=== PATIENT | female | born 2000 | race Caucasian/White ===

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

== ENCOUNTER → 2022-03-21 | Outpatient (CLI) | payer OTHER ==
[2022-03-21 15:13] LABS: HEMATOCRIT 38.4 % (36.0-47.0); HEMOGLOBIN 11.7 g/dl (12.0-15.5); MEAN CORPUSCULAR HEMOGLOBIN 25.1 pg (27.0-33.0); MEAN CORPUSCULAR HGB CONC 30.5 g/dl (32.0-36.5); MEAN CORPUSCULAR VOLUME 82.4 fl (80.0-96.0); PLATELET COUNT, AUTOMATED 342 10^3/uL (150-450); RED BLOOD COUNT 4.66 10^6/uL (4.00-5.40); WHITE BLOOD COUNT 8.4 10^3/uL (4.0-10.0)
[2022-03-21 15:18] LABS: HCG, SERUM QUALITATIVE NEGATIVE (NEGATIVE)
[2022-03-21 15:38] LABS: ALBUMIN 3.9 GM/DL (3.2-5.2); ALT/SGPT 16 U/L (12-78); BILIRUBIN,TOTAL 0.7 MG/DL (0.2-1.0); BLOOD UREA NITROGEN 7 MG/DL (7-18); CALCIUM LEVEL 9.6 MG/DL (8.5-10.1); CARBON DIOXIDE LEVEL 25 MEQ/L (21-32); CHLORIDE LEVEL 109 MEQ/L (98-107); CHOLESTEROL LEVEL 151 MG/DL (<200); CHOLESTEROL RISK RATIO 3.282 (<5); CREATININE FOR GFR 0.64 MG/DL (0.55-1.30); GLUCOSE, FASTING 88 MG/DL (70-100); HDL CHOLESTEROL 46 MG/DL (>40); LDL CHOLESTEROL 88 MG/DL (<100); NON-HDL-C 105 MG/DL; POTASSIUM SERUM 4.1 MEQ/L (3.5-5.1); SODIUM LEVEL 139 MEQ/L (136-145); TOTAL PROTEIN 7.6 GM/DL (6.4-8.2); TRIGLYCERIDES LEVEL 83 MG/DL (<150)
[2022-03-21 16:01] LABS: TOTAL 25(OH) VITAMIN D 9.7 NG/ML (30.0-100.0)
[2022-03-21 16:04] LABS: HEMOGLOBIN A1c 5.2 %
== END ==
LOC: M LAB 13:59
PROVIDERS: ATTEND Nurse Practitioner Psychiatric/Mental Health
DX: F43.20 Adjustment disorder, unspecified (principal)

== ENCOUNTER 2022-10-11 17:50 | Inpatient (IN) | payer MEDICAID, OTHER ==
[~2022-10-11] VITALS: Ht 167.6 cm; Wt 101.9 kg
[2022-10-11] MEDS ORDERED: OLAN2.5T25 (18:07)
[2022-10-11] MEDS ORDERED: ZOLO100T PO (18:07)
[2022-10-11 19:10] LABS: HEMATOCRIT 41.8 % (36.0-47.0); HEMOGLOBIN 13.1 g/dl (12.0-15.5); MEAN CORPUSCULAR HEMOGLOBIN 25.7 pg (27.0-33.0); MEAN CORPUSCULAR HGB CONC 31.3 g/dl (32.0-36.5); PLATELET COUNT, AUTOMATED 404 10^3/uL (150-450); WHITE BLOOD COUNT 9.8 10^3/uL (4.0-10.0)
[2022-10-11 19:27] LABS: CHLORIDE LEVEL 88 MMOL/L (98-107); SODIUM LEVEL 119 MMOL/L (136-145)
[2022-10-11 19:28] LABS: ALBUMIN 4.4 G/DL (3.2-5.2); CARBON DIOXIDE LEVEL 20 MMOL/L (20-31)
[2022-10-11 19:33] LABS: BLOOD UREA NITROGEN 7 MG/DL (9-23); CALCIUM LEVEL 9.8 MG/DL (8.5-10.1); GLUCOSE, FASTING 109 MG/DL (60-100)
[2022-10-11 19:34] LABS: ALKALINE PHOSPHATASE 87 U/L (46-116); ETHYL ALCOHOL (ETHANOL) 0.003 % (0.000-0.010)
[2022-10-11 19:35] LABS: ACETAMINOPHEN LEVEL < 2.0 UG/ML (10.0-20.0); ALT/SGPT 20 U/L (7.0-40); AST/SGOT 20 U/L (<34); BILIRUBIN,DIRECT 0.3 MG/DL (<0.4); BILIRUBIN,TOTAL 0.8 MG/DL (0.3-1.2); SALICYLATE LEVEL < 3.0 MG/DL (<30); TOTAL PROTEIN 8.1 G/DL (5.7-8.2)
[2022-10-11 19:36] LABS: CREATININE FOR GFR 0.69 MG/DL (0.55-1.30)
[2022-10-11 19:37] LABS: THYROID STIMULATING HORMONE 1.255 uIU/ML (0.48-4.17)
[2022-10-11 19:40] LABS: POTASSIUM SERUM 3.3 MMOL/L (3.5-5.1)
[2022-10-11] MEDS ORDERED: LITH150C PO (20:26)
[2022-10-11] MEDS ORDERED: HOME MED LIST COMPLETE! XX SCH (20:30)
[2022-10-11 20:59] LABS: AMPHETAMINES LEVEL URINE NEGATIVE (NEGATIVE); BARBITURATES URINE NEGATIVE (NEGATIVE); BENZODIAZEPINES URINE NEGATIVE (NEGATIVE); METHADONE URINE NEGATIVE (NEGATIVE); OPIATES URINE NEGATIVE (NEGATIVE); PHENCYCLIDINE URINE NEGATIVE (NEGATIVE)
[2022-10-11 21:16] LABS: CANNABINOIDS URINE POSITIVE (NEGATIVE)
[2022-10-11 22:07] LABS: OSMOLALITY URINE 864 MOSM/KG (50-1400)
[2022-10-11 22:07] LABS: OSMOLALITY SERUM 285 MOSM/KG (275-295)
[2022-10-11 22:12] LABS: SODIUM,RANDOM URINE 144 MMOL/L
[2022-10-11 22:17] LABS: COCAINE METABOLITE URINE NEGATIVE (NEGATIVE)
[2022-10-11] MEDS ORDERED: NS 1,000 ML IV ONE (23:10)
[2022-10-11 23:12] LABS: LITHIUM LEVEL < 0.20 MEQ/L (0.60-1.20)
[2022-10-11 23:18] LABS: HCG, SERUM QUALITATIVE NEGATIVE (NEGATIVE)
[2022-10-12 00:02] LABS: RSV AMPLIFICATION NEGATIVE (NEGATIVE)
[2022-10-12] MEDS ORDERED: LORazepam 2 MG/ML VIAL IV STA (00:21)
[2022-10-12] MEDS ORDERED: POTASSIUM CHLORIDE 10MEQ SR TABLET PO ONE (02:00)
[2022-10-12 02:09] LABS: CHLORIDE LEVEL 107 MMOL/L (98-107); POTASSIUM SERUM 3.7 MMOL/L (3.5-5.1); SODIUM LEVEL 139 MMOL/L (136-145)
[2022-10-12 02:10] LABS: CARBON DIOXIDE LEVEL 24 MMOL/L (20-31)
[2022-10-12 02:15] LABS: BLOOD UREA NITROGEN 7 MG/DL (9-23)
[2022-10-12 02:16] LABS: CALCIUM LEVEL 8.4 MG/DL (8.5-10.1); GLUCOSE, FASTING 92 MG/DL (60-100)
[2022-10-12 02:18] LABS: CREATININE FOR GFR 0.63 MG/DL (0.55-1.30)
[2022-10-12] MEDS ORDERED: OLANZapine ORAL DISINTEGRATING TAB 5MG PO PRN (05:50)
[2022-10-12] MEDS ORDERED: MOM 30ML SUSPENSION UDC PO PRN (05:50)
[2022-10-12] MEDS ORDERED: ACETAMINOPHEN TAB 650MG DOSE (2X325MG) PO PRN (05:50)
[2022-10-12] MEDS ORDERED: MAALOX 30 ML SUSP *UDC PO PRN (05:50)
[2022-10-12 08:57] VITALS: BP 141/81
[2022-10-12] MEDS ORDERED: SERTRALINE HCL 50 MG TAB PO SCH (09:00)
[2022-10-12] MEDS ORDERED: OLANZapine ORAL DISINTEGRATING TAB 5MG PO ONE (10:45)
[2022-10-12] MEDS ORDERED: OLANZapine 5 MG TAB PO SCH (21:00)
[2022-10-12] MEDS ORDERED: diphenhydrAMINE 50MG CAP PO ONE (23:45)
[2022-10-12] MEDS ORDERED: LORazepam 1 MG TAB PO ONE (23:45)
[2022-10-13 06:39] VITALS: BP 133/69
[2022-10-13 07:54] LABS: CHOLESTEROL RISK RATIO 3.37 (<5); HDL CHOLESTEROL 33.8 MG/DL (>40); LDL CHOLESTEROL 70.4 MG/DL (<100)
[2022-10-13] MEDS: SERTRALINE HCL 50 MG TAB PO SCH (09:00)
[2022-10-13] MEDS: OLANZapine 2.5MG TABLET PO SCH ×2 (09:00→21:00)
[2022-10-13] MEDS ORDERED: LORazepam 0.5 MG TAB PO PRN (12:55)
[2022-10-13 18:15] VITALS: BP 148/70
[2022-10-13] MEDS: LITHIUM CARBONATE 150 MG CAP PO SCH (21:49)
[2022-10-14 06:30] VITALS: BP 118/59
[2022-10-14] MEDS: SERTRALINE HCL 50 MG TAB PO SCH (09:51)
[2022-10-14] MEDS: OLANZapine 2.5MG TABLET PO SCH ×2 (09:51→20:16)
[2022-10-14 18:09] VITALS: BP 145/74
[2022-10-14] MEDS: traZODone 50 MG TAB PO PRN (20:16)
[2022-10-14] MEDS: LITHIUM CARBONATE 150 MG CAP PO SCH (20:16)
[2022-10-15 06:00] VITALS: BP 146/65
[2022-10-15] MEDS: SERTRALINE HCL 50 MG TAB PO SCH (09:40)
[2022-10-15] MEDS: OLANZapine 2.5MG TABLET PO SCH ×2 (09:40→20:53)
[2022-10-15 18:16] VITALS: BP 145/66
[2022-10-15] MEDS: LITHIUM CARBONATE 150 MG CAP PO SCH (20:53)
[2022-10-15] MEDS: traZODone 50 MG TAB PO PRN (20:53)
[2022-10-16 06:55] VITALS: BP 145/88
[2022-10-16] MEDS: OLANZapine 2.5MG TABLET PO SCH ×2 (10:14→20:02)
[2022-10-16] MEDS: SERTRALINE HCL 50 MG TAB PO SCH (10:14)
[2022-10-16 18:00] VITALS: BP 140/70
[2022-10-16] MEDS: traZODone 50 MG TAB PO PRN (20:02)
[2022-10-16] MEDS: LITHIUM CARBONATE 150 MG CAP PO SCH (20:02)
[2022-10-17 06:50] VITALS: BP 128/60
[2022-10-17] MEDS: OLANZapine 2.5MG TABLET PO SCH ×2 (07:52→21:04)
[2022-10-17] MEDS: SERTRALINE HCL 50 MG TAB PO SCH (07:53)
[2022-10-17] MEDS ORDERED: SERTRALINE HCL 50 MG TAB PO ONE (09:45)
[2022-10-17 16:10] VITALS: BP 134/82
[2022-10-17] MEDS ORDERED: LITHIUM CARBONATE 150 MG CAP PO SCH (21:00)
[2022-10-17] MEDS: traZODone 50 MG TAB PO PRN (21:05)
[2022-10-18 06:33] VITALS: BP 125/71
[2022-10-18] MEDS ORDERED: SERTRALINE 100 MG TAB PO SCH ×2 (09:00→09:11)
[2022-10-18] MEDS ORDERED: SERTRALINE HCL 50 MG TAB PO SCH (09:00)
[2022-10-18] MEDS: OLANZapine 2.5MG TABLET PO SCH (09:15)
[2022-10-18] MEDS ORDERED: LITH150C PO (10:11)
[2022-10-18] MEDS ORDERED: TRAZ-252 PO (10:11)
[2022-10-18] MEDS ORDERED: OLAN2.5T25 PO (10:11)
[2022-10-18] MEDS ORDERED: ZOLO100T PO (10:11)
== END 2022-10-18 12:20 | disposition home or self-care (01) | DRG 776 ==
LOC: M ED 17:50 → M ED INP 10-12 05:47 → M PSY 10-12 08:49
PROVIDERS: ADMIT Student in an Organized Health Care Education/Training Program; ATTEND Student in an Organized Health Care Education/Training Program
DX: F15.951 Other stimulant use, unspecified with stimulant-induced psychotic disorder with hallucinations (principal); F12.10 Cannabis abuse, uncomplicated; F32.A Depression, unspecified; F43.9 Reaction to severe stress, unspecified; Z63.4 Disappearance and death of family member; Z81.8 Family history of other mental and behavioral disorders; Z20.822 Contact with and (suspected) exposure to COVID-19; Z79.899 Other long term (current) drug therapy; E66.9 Obesity, unspecified; G40.909 Epilepsy, unspecified, not intractable, without status epilepticus

== ENCOUNTER 2022-11-02 03:35 | Inpatient (IN) | payer MEDICAID, OTHER ==
[~2022-11-02] VITALS: Ht 167.6 cm; Wt 104.5 kg
[~2022-11-02 03:35] MED LIST changes: +LITH150C PO; +OLAN2.5T25; +OLAN2.5T25 PO; +TRAZ-252 PO; +ZOLO100T PO
[2022-11-02 04:18] LABS: HEMATOCRIT 37.3 % (36.0-47.0); HEMOGLOBIN 11.8 g/dl (12.0-15.5); MEAN CORPUSCULAR HEMOGLOBIN 24.7 pg (27.0-33.0); MEAN CORPUSCULAR HGB CONC 31.6 g/dl (32.0-36.5); PLATELET COUNT, AUTOMATED 485 10^3/uL (150-450); RED BLOOD COUNT 4.78 10^6/uL (4.00-5.40); WHITE BLOOD COUNT 17.4 10^3/uL (4.0-10.0)
[2022-11-02] MEDS ORDERED: OLANZapine ORAL DISINTEGRATING TAB 5MG PO ONE (04:25)
[2022-11-02 04:43] LABS: ACETAMINOPHEN LEVEL < 2.0 UG/ML (10.0-20.0); BILIRUBIN,DIRECT 0.3 MG/DL (<0.4); ETHYL ALCOHOL (ETHANOL) 0.003 % (0.000-0.010)
[2022-11-02 04:44] LABS: ALBUMIN 4.1 G/DL (3.2-5.2); ALKALINE PHOSPHATASE 98 U/L (46-116); ALT/SGPT 20 U/L (7.0-40); AST/SGOT 24 U/L (<34); BILIRUBIN,TOTAL 0.9 MG/DL (0.3-1.2); BLOOD UREA NITROGEN 13 MG/DL (9-23); CALCIUM LEVEL 9.8 MG/DL (8.5-10.1); CARBON DIOXIDE LEVEL 20 MMOL/L (20-31); CHLORIDE LEVEL 104 MMOL/L (98-107); CREATININE FOR GFR 0.69 MG/DL (0.55-1.30); GLUCOSE, FASTING 99 MG/DL (60-100); POTASSIUM SERUM 3.8 MMOL/L (3.5-5.1); SALICYLATE LEVEL < 3.0 MG/DL (<30); SODIUM LEVEL 137 MMOL/L (136-145); TOTAL PROTEIN 8.2 G/DL (5.7-8.2)
[2022-11-02 04:52] LABS: HCG, SERUM QUALITATIVE NEGATIVE (NEGATIVE)
[2022-11-02 04:58] LABS: RSV AMPLIFICATION NEGATIVE (NEGATIVE)
[2022-11-02] MEDS ORDERED: ZOLO100T PO (06:55)
[2022-11-02] MEDS ORDERED: LITH150C PO (06:55)
[2022-11-02] MEDS ORDERED: TRAZ-186 PO (06:55)
[2022-11-02] MEDS ORDERED: OLAN15TA13 PO (06:55)
[2022-11-02] MEDS ORDERED: HOME MED LIST COMPLETE! XX SCH (07:00)
[2022-11-02 07:36] LABS: THYROID STIMULATING HORMONE 4.159 uIU/ML (0.48-4.17)
[2022-11-02 07:43] LABS: LITHIUM LEVEL < 0.10 MEQ/L (0.60-1.20)
[2022-11-02] MEDS ORDERED: traZODone 50 MG TAB PO PRN (08:55)
[2022-11-02] MEDS ORDERED: OLANZapine 2.5MG TABLET PO SCH (09:00)
[2022-11-02] MEDS: NICOTINE 21MG/24HR 1 EA TRANSDERMAL TD SCH (09:00)
[2022-11-02] MEDS ORDERED: SERTRALINE 100 MG TAB PO SCH (09:00)
[2022-11-02 11:29] LABS: PHENCYCLIDINE URINE NEGATIVE (NEGATIVE)
[2022-11-02 11:30] LABS: BARBITURATES URINE NEGATIVE (NEGATIVE); BENZODIAZEPINES URINE NEGATIVE (NEGATIVE); COCAINE METABOLITE URINE NEGATIVE (NEGATIVE); METHADONE URINE NEGATIVE (NEGATIVE); OPIATES URINE NEGATIVE (NEGATIVE)
[2022-11-02 11:37] LABS: AMPHETAMINES LEVEL URINE POSITIVE (NEGATIVE); CANNABINOIDS URINE POSITIVE (NEGATIVE)
[2022-11-02] MEDS ORDERED: IBUPROFEN 400MG TAB PO PRN (13:30)
[2022-11-02] MEDS ORDERED: diphenhydrAMINE 25MG CAP PO PRN (13:30)
[2022-11-02] MEDS ORDERED: MAALOX 30 ML SUSP *UDC PO PRN (13:30)
[2022-11-02] MEDS ORDERED: OLANZapine 5 MG TAB PO PRN (13:30)
[2022-11-02] MEDS ORDERED: MOM 30ML SUSPENSION UDC PO PRN (13:30)
[2022-11-02 17:07] VITALS: BP 129/56
[2022-11-02] MEDS ORDERED: LITHIUM CARBONATE 300 MG CAP PO SCH (21:00)
[2022-11-02] MEDS: traZODone 50 MG TAB PO PRN (21:29)
[2022-11-02] MEDS: OLANZapine 5 MG TAB PO SCH (21:29)
[2022-11-02] MEDS: LITHIUM CARBONATE 150 MG CAP PO SCH (21:29)
[2022-11-03 06:55] VITALS: BP 123/58
[2022-11-03] MEDS: NICOTINE 21MG/24HR 1 EA TRANSDERMAL TD SCH (09:00)
[2022-11-03] MEDS: SERTRALINE 100 MG TAB PO SCH (09:17)
[2022-11-03] MEDS: OLANZapine 5 MG TAB PO SCH (09:17)
[2022-11-03 12:29] LABS: HEMATOCRIT 35.4 % (36.0-47.0); HEMOGLOBIN 10.7 g/dl (12.0-15.5); MEAN CORPUSCULAR HEMOGLOBIN 24.7 pg (27.0-33.0); MEAN CORPUSCULAR HGB CONC 30.2 g/dl (32.0-36.5); MEAN CORPUSCULAR VOLUME 81.8 fl (80.0-96.0); PLATELET COUNT, AUTOMATED 376 10^3/uL (150-450); RED BLOOD COUNT 4.33 10^6/uL (4.00-5.40); WHITE BLOOD COUNT 11.7 10^3/uL (4.0-10.0)
[2022-11-03 18:38] VITALS: BP 135/61
[2022-11-03] MEDS: LITHIUM CARBONATE 150 MG CAP PO SCH (21:06)
[2022-11-03] MEDS: PALIPERIDONE 3MG ER TAB (INVEGA) PO SCH (21:06)
[2022-11-04 06:05] VITALS: BP 116/65
[2022-11-04] MEDS: PALIPERIDONE 3MG ER TAB (INVEGA) PO SCH ×2 (08:22→20:55)
[2022-11-04] MEDS: SERTRALINE 100 MG TAB PO SCH (08:22)
[2022-11-04] MEDS: NICOTINE 21MG/24HR 1 EA TRANSDERMAL TD SCH (08:23)
[2022-11-04] MEDS: MULTIVITAMINS/MINERALS THERAP 1 TAB PO SCH (09:34)
[2022-11-04 18:00] VITALS: BP 131/62
[2022-11-04] MEDS: LITHIUM CARBONATE 150 MG CAP PO SCH (20:55)
[2022-11-05 06:24] VITALS: BP 131/73
[2022-11-05] MEDS: NICOTINE 21MG/24HR 1 EA TRANSDERMAL TD SCH (09:00)
[2022-11-05] MEDS: MULTIVITAMINS/MINERALS THERAP 1 TAB PO SCH (10:33)
[2022-11-05] MEDS: SERTRALINE 100 MG TAB PO SCH (10:33)
[2022-11-05] MEDS: PALIPERIDONE 3MG ER TAB (INVEGA) PO SCH ×2 (10:33→20:59)
[2022-11-05] MEDS ORDERED: PALIPERIDONE PAL 234MG/1.5ML INJ (INVEGA)(FREE PSY INPT ONLY) IM ONE (12:00)
[2022-11-05 16:52] VITALS: BP 126/75
[2022-11-05] MEDS: LITHIUM CARBONATE 150 MG CAP PO SCH (20:59)
[2022-11-06 06:18] VITALS: BP 136/75
[2022-11-06] MEDS: NICOTINE 21MG/24HR 1 EA TRANSDERMAL TD SCH (09:00)
[2022-11-06] MEDS: SERTRALINE 100 MG TAB PO SCH (09:48)
[2022-11-06] MEDS: PALIPERIDONE 3MG ER TAB (INVEGA) PO SCH ×2 (09:48→21:21)
[2022-11-06] MEDS: MULTIVITAMINS/MINERALS THERAP 1 TAB PO SCH (09:49)
[2022-11-06 14:49] VITALS: BP 130/66
[2022-11-06] MEDS: traZODone 50 MG TAB PO PRN (21:21)
[2022-11-06] MEDS: LITHIUM CARBONATE 150 MG CAP PO SCH (21:21)
[2022-11-07 07:05] VITALS: BP 120/63
[2022-11-07] MEDS: MULTIVITAMINS/MINERALS THERAP 1 TAB PO SCH (08:00)
[2022-11-07] MEDS: PALIPERIDONE 3MG ER TAB (INVEGA) PO SCH ×2 (08:00→21:33)
[2022-11-07] MEDS: NICOTINE 21MG/24HR 1 EA TRANSDERMAL TD SCH (08:01)
[2022-11-07] MEDS: SERTRALINE 100 MG TAB PO SCH (08:01)
[2022-11-07 19:00] VITALS: BP 146/70
[2022-11-07] MEDS: traZODone 50 MG TAB PO PRN (21:33)
[2022-11-07] MEDS: LITHIUM CARBONATE 150 MG CAP PO SCH (21:33)
[2022-11-08] MEDS ORDERED: PALIPERIDONE PAL 156MG/1ML INJ(INVEGA)(FREE PSY INPT ONLY) IM ONE (06:00)
[2022-11-08 07:08] VITALS: BP 117/68
[2022-11-08] MEDS: NICOTINE 21MG/24HR 1 EA TRANSDERMAL TD SCH (09:00)
[2022-11-08] MEDS ORDERED: LITH150C PO (09:16)
[2022-11-08] MEDS ORDERED: NICO21PAT TD (09:16)
[2022-11-08] MEDS ORDERED: PALI1TAB2 PO (09:16)
[2022-11-08] MEDS ORDERED: ZOLO100T PO (09:16)
[2022-11-08] MEDS ORDERED: INVE156I IM (09:16)
[2022-11-08] MEDS ORDERED: TRAZ-186 PO (09:16)
[2022-11-08] MEDS: PALIPERIDONE 3MG ER TAB (INVEGA) PO SCH (09:29)
[2022-11-08] MEDS: MULTIVITAMINS/MINERALS THERAP 1 TAB PO SCH (09:29)
[2022-11-08] MEDS: SERTRALINE 100 MG TAB PO SCH (09:29)
== END 2022-11-08 11:30 | disposition home or self-care (01) | DRG 750 ==
LOC: M ED 03:35 → M ED INP 13:30 → M PSY 16:45
PROVIDERS: ADMIT Student in an Organized Health Care Education/Training Program; ATTEND Student in an Organized Health Care Education/Training Program
DX: F20.0 Paranoid schizophrenia (principal); D72.829 Elevated white blood cell count, unspecified; G43.909 Migraine, unspecified, not intractable, without status migrainosus; Z79.899 Other long term (current) drug therapy; F12.90 Cannabis use, unspecified, uncomplicated; Z87.891 Personal history of nicotine dependence

== ENCOUNTER 2022-11-24 20:26 | Emergency (ER) | payer MEDICAID ==
[~2022-11-24] VITALS: Ht 167.6 cm; Wt 101.6 kg
[~2022-11-24 20:26] MED LIST changes: +INVE156I IM; +NICO21PAT TD; +OLAN15TA13 PO; +PALI1TAB2 PO; +TRAZ-186 PO
[2022-11-24 21:49] LABS: HEMOGLOBIN 11.4 g/dl (12.0-15.5); MEAN CORPUSCULAR HEMOGLOBIN 24.5 pg (27.0-33.0); MEAN CORPUSCULAR VOLUME 81.5 fl (80.0-96.0); PLATELET COUNT, AUTOMATED 426 10^3/uL (150-450); RED BLOOD COUNT 4.66 10^6/uL (4.00-5.40); WHITE BLOOD COUNT 12.5 10^3/uL (4.0-10.0)
[2022-11-24] MEDS ORDERED: LITHIUM CARBONATE 300 MG **CR** TAB PO ONE (22:00)
[2022-11-24] MEDS ORDERED: traZODone 50 MG TAB PO ONE (22:00)
[2022-11-24] MEDS ORDERED: OLANZapine 10 MG TAB PO ONE (22:00)
[2022-11-24 22:12] LABS: ETHYL ALCOHOL (ETHANOL) 0.003 % (0.000-0.010)
[2022-11-24 22:13] LABS: ACETAMINOPHEN LEVEL < 2.0 UG/ML (10.0-20.0); BILIRUBIN,DIRECT 0.2 MG/DL (<0.4); SALICYLATE LEVEL < 3.0 MG/DL (<30)
[2022-11-24 22:15] LABS: THYROID STIMULATING HORMONE 1.796 uIU/ML (0.48-4.17)
[2022-11-24 22:21] LABS: RSV AMPLIFICATION NEGATIVE (NEGATIVE)
[2022-11-24 22:36] LABS: ALKALINE PHOSPHATASE 95 U/L (46-116); ALT/SGPT 18 U/L (7.0-40); AST/SGOT 38 U/L (<34); BILIRUBIN,TOTAL 0.7 MG/DL (0.3-1.2); BLOOD UREA NITROGEN 11 MG/DL (9-23); CALCIUM LEVEL 9.5 MG/DL (8.5-10.1); CARBON DIOXIDE LEVEL 22 MMOL/L (20-31); CHLORIDE LEVEL 104 MMOL/L (98-107); CREATININE FOR GFR 0.68 MG/DL (0.55-1.30); GLUCOSE, FASTING 91 MG/DL (60-100); LITHIUM LEVEL < 0.10 MMOL/L (0.60-1.20); POTASSIUM SERUM 4.8 MMOL/L (3.5-5.1); SODIUM LEVEL 137 MMOL/L (136-145); TOTAL PROTEIN 7.8 G/DL (5.7-8.2)
[2022-11-24 22:52] LABS: HCG, SERUM QUALITATIVE NEGATIVE (NEGATIVE)
[2022-11-24] MEDS ORDERED: ZOLO100T PO (23:23)
[2022-11-24] MEDS ORDERED: OLAN20TA14 PO (23:23)
[2022-11-24] MEDS ORDERED: TRAZ-252 PO (23:23)
[2022-11-24] MEDS ORDERED: LITH1TAB PO (23:23)
[2022-11-24] MEDS ORDERED: FERR1TAB8 PO (23:23)
[2022-11-24] MEDS ORDERED: INVE156I IM (23:23)
[2022-11-24 23:32] LABS: AMPHETAMINES LEVEL URINE NEGATIVE (NEGATIVE); BARBITURATES URINE NEGATIVE (NEGATIVE); COCAINE METABOLITE URINE NEGATIVE (NEGATIVE); METHADONE URINE NEGATIVE (NEGATIVE); OPIATES URINE NEGATIVE (NEGATIVE); PHENCYCLIDINE URINE NEGATIVE (NEGATIVE)
[2022-11-24 23:33] LABS: BENZODIAZEPINES URINE POSITIVE (NEGATIVE); CANNABINOIDS URINE POSITIVE (NEGATIVE)
[2022-11-25] MEDS ORDERED: HOME MED LIST COMPLETE! XX SCH (00:55)
[2022-11-25] MEDS ORDERED: PALIPERIDONE 6MG ER TAB (INVEGA) PO ONE (08:20)
[2022-11-25 14:21] VITALS: BP 125/84
== END 2022-11-25 14:28 | disposition home or self-care (01) ==
LOC: M ED 21:51
DX: F19.951 Other psychoactive substance use, unspecified with psychoactive substance-induced psychotic disorder with hallucinations (principal); F20.9 Schizophrenia, unspecified; F12.10 Cannabis abuse, uncomplicated

== ENCOUNTER 2023-05-05 06:13 | Inpatient (IN) | payer MEDICAID, OTHER ==
[~2023-05-05] VITALS: Ht 170.2 cm; Wt 100.5 kg
[~2023-05-05 06:13] MED LIST changes: +FERR1TAB8 PO; +LITH1TAB PO; +OLAN20TA14 PO
[2023-05-05 07:55] LABS: HEMATOCRIT 38.1 % (36.0-47.0); HEMOGLOBIN 11.7 g/dl (12.0-15.5); MEAN CORPUSCULAR HEMOGLOBIN 24.1 pg (27.0-33.0); MEAN CORPUSCULAR HGB CONC 30.7 g/dl (32.0-36.5); MEAN CORPUSCULAR VOLUME 78.6 fl (80.0-96.0); PLATELET COUNT, AUTOMATED 316 10^3/uL (150-450); RED BLOOD COUNT 4.85 10^6/uL (4.00-5.40); WHITE BLOOD COUNT 9.7 10^3/uL (4.0-10.0)
[2023-05-05 08:23] LABS: ETHYL ALCOHOL (ETHANOL) < 0.003 % (0.000-0.010)
[2023-05-05 08:24] LABS: SALICYLATE LEVEL < 3.0 MG/DL (<30)
[2023-05-05 08:25] LABS: ACETAMINOPHEN LEVEL < 2.0 UG/ML (10.0-20.0); ALBUMIN 4.1 G/DL (3.2-5.2); ALKALINE PHOSPHATASE 80 U/L (46-116); ALT/SGPT 19 U/L (7.0-40); AST/SGOT 15 U/L (<34); BILIRUBIN,DIRECT 0.5 MG/DL (<0.4); BILIRUBIN,TOTAL 1.3 MG/DL (0.3-1.2); BLOOD UREA NITROGEN 15 MG/DL (9-23); CALCIUM LEVEL 8.9 MG/DL (8.5-10.1); CARBON DIOXIDE LEVEL 21 MMOL/L (20-31); CHLORIDE LEVEL 106 MMOL/L (98-107); CREATININE FOR GFR 0.87 MG/DL (0.55-1.30); GLUCOSE, FASTING 92 MG/DL (60-100); POTASSIUM SERUM 3.8 MMOL/L (3.5-5.1); SODIUM LEVEL 138 MMOL/L (136-145); TOTAL PROTEIN 7.4 G/DL (5.7-8.2)
[2023-05-05 08:27] LABS: THYROID STIMULATING HORMONE 1.242 uIU/ML (0.48-4.17)
[2023-05-05 08:59] LABS: BARBITURATES URINE NEGATIVE (NEGATIVE); BENZODIAZEPINES URINE NEGATIVE (NEGATIVE); COCAINE METABOLITE URINE NEGATIVE (NEGATIVE); METHADONE URINE NEGATIVE (NEGATIVE); OPIATES URINE NEGATIVE (NEGATIVE); PHENCYCLIDINE URINE NEGATIVE (NEGATIVE)
[2023-05-05 09:09] LABS: AMPHETAMINES LEVEL URINE POSITIVE (NEGATIVE); CANNABINOIDS URINE POSITIVE (NEGATIVE)
[2023-05-05] MEDS ORDERED: MED REC IN PROGRESS XX SCH (10:00)
[2023-05-05 10:11] LABS: GC DNA AMPLIFICATION NEGATIVE (NEGATIVE)
[2023-05-05] MEDS ORDERED: MED REC COMMENT (12:03)
[2023-05-05] MEDS ORDERED: OLAN2.5T25 PO (12:08)
[2023-05-05] MEDS ORDERED: HOME MED LIST COMPLETE! XX SCH (12:15)
[2023-05-05 15:12] LABS: HCG, SERUM QUALITATIVE NEGATIVE (NEGATIVE)
[2023-05-05] MEDS ORDERED: DOXYCYCLINE HYCLATE 100MG TABLET PO ONE (16:00)
[2023-05-05] MEDS ORDERED: IBUPROFEN 400MG TAB PO PRN (19:00)
[2023-05-05] MEDS ORDERED: MOM 30ML SUSPENSION UDC PO PRN (19:00)
[2023-05-05] MEDS ORDERED: OLANZapine ORAL DISINTEGRATING TAB 5MG PO PRN (19:00)
[2023-05-05] MEDS ORDERED: LORazepam 1 MG TAB PO PRN (19:00)
[2023-05-05] MEDS ORDERED: MAALOX 30 ML SUSP *UDC PO PRN (19:00)
[2023-05-05] MEDS ORDERED: diphenhydrAMINE 25MG CAP PO PRN (19:00)
[2023-05-05] MEDS ORDERED: ACETAMINOPHEN TAB 650MG DOSE (2X325MG) PO PRN (19:00)
[2023-05-05] MEDS: LITHIUM CARBONATE 300 MG **CR** TAB PO SCH (21:49)
[2023-05-05 21:56] VITALS: BP 134/75; TEMP 98.2; O2SAT 96
[2023-05-05] MEDS: DOXYCYCLINE HYCLATE 100MG TABLET PO SCH (22:14)
[2023-05-06 07:13] VITALS: BP 143/63; TEMP 97.8; O2SAT 99
[2023-05-06] MEDS ORDERED: PALIPERIDONE 6MG ER TAB (INVEGA) PO SCH (09:00)
[2023-05-06] MEDS: SERTRALINE HCL 50 MG TAB PO SCH (10:21)
[2023-05-06] MEDS: DOXYCYCLINE HYCLATE 100MG TABLET PO SCH ×2 (10:21→21:37)
[2023-05-06 11:27] LABS: PERCENT SATURATION 8.9 % (13.2-45.0)
[2023-05-06 11:28] LABS: FERRITIN 42.7 NG/ML (7.3-270.7); FOLATE 13.99 NG/ML (>5.4)
[2023-05-06 17:07] VITALS: BP 131/76; TEMP 98; O2SAT 97
[2023-05-06] MEDS: LITHIUM CARBONATE 300 MG **CR** TAB PO SCH (21:36)
[2023-05-07 07:03] VITALS: BP 140/63; TEMP 97.6; O2SAT 99
[2023-05-07] MEDS: DOXYCYCLINE HYCLATE 100MG TABLET PO SCH ×2 (08:01→21:56)
[2023-05-07] MEDS: SERTRALINE HCL 50 MG TAB PO SCH (08:01)
[2023-05-07] MEDS: FERROUS SULFATE 325MG TAB PO SCH (09:42)
[2023-05-07 17:05] VITALS: BP 120/64; TEMP 98.4; O2SAT 100
[2023-05-07] MEDS: LITHIUM CARBONATE 300 MG **CR** TAB PO SCH (21:56)
[2023-05-07] MEDS: traZODone 50 MG TAB PO PRN (21:56)
[2023-05-08 06:49] VITALS: BP 115/64; TEMP 99.1; O2SAT 97
[2023-05-08] MEDS: DOXYCYCLINE HYCLATE 100MG TABLET PO SCH ×2 (07:59→21:05)
[2023-05-08] MEDS: FERROUS SULFATE 325MG TAB PO SCH (07:59)
[2023-05-08] MEDS: SERTRALINE HCL 50 MG TAB PO SCH (07:59)
[2023-05-08 18:00] VITALS: BP 125/68; TEMP 98.5
[2023-05-08] MEDS: traZODone 50 MG TAB PO PRN (21:05)
[2023-05-08] MEDS: PALIPERIDONE 3MG ER TAB (INVEGA) PO SCH (21:05)
[2023-05-08] MEDS: LITHIUM CARBONATE 300 MG **CR** TAB PO SCH (21:06)
[2023-05-09 05:59] VITALS: BP 121/59; TEMP 98.1; O2SAT 100
[2023-05-09] MEDS: SERTRALINE HCL 50 MG TAB PO SCH (08:22)
[2023-05-09] MEDS: DOXYCYCLINE HYCLATE 100MG TABLET PO SCH ×2 (08:22→20:45)
[2023-05-09] MEDS: FERROUS SULFATE 325MG TAB PO SCH (08:23)
[2023-05-09] MEDS: NICOTINE 21MG/24HR 1 EA TRANSDERMAL TD PRN (08:24)
[2023-05-09 18:01] VITALS: BP 127/60; TEMP 97.6
[2023-05-09] MEDS: traZODone 50 MG TAB PO PRN (20:45)
[2023-05-09] MEDS: LITHIUM CARBONATE 300 MG **CR** TAB PO SCH (20:45)
[2023-05-09] MEDS: PALIPERIDONE 3MG ER TAB (INVEGA) PO SCH (20:45)
[2023-05-10 06:16] VITALS: BP 121/69; TEMP 96.8; O2SAT 99
[2023-05-10] MEDS: DOXYCYCLINE HYCLATE 100MG TABLET PO SCH ×2 (08:08→20:13)
[2023-05-10] MEDS: NICOTINE 21MG/24HR 1 EA TRANSDERMAL TD PRN (08:09)
[2023-05-10] MEDS: FERROUS SULFATE 325MG TAB PO SCH (08:09)
[2023-05-10] MEDS: SERTRALINE HCL 50 MG TAB PO SCH (08:10)
[2023-05-10 18:28] VITALS: BP 131/78; TEMP 98.1
[2023-05-10] MEDS: LITHIUM CARBONATE 300 MG **CR** TAB PO SCH (20:13)
[2023-05-10] MEDS: PALIPERIDONE 3MG ER TAB (INVEGA) PO SCH (20:13)
[2023-05-10] MEDS: traZODone 50 MG TAB PO PRN (20:14)
[2023-05-11 06:49] VITALS: BP 128/61; TEMP 97.1; O2SAT 100
[2023-05-11] MEDS: SERTRALINE HCL 50 MG TAB PO SCH (08:29)
[2023-05-11] MEDS: FERROUS SULFATE 325MG TAB PO SCH (08:29)
[2023-05-11] MEDS: DOXYCYCLINE HYCLATE 100MG TABLET PO SCH (08:29)
[2023-05-11] MEDS: NICOTINE 21MG/24HR 1 EA TRANSDERMAL TD PRN (08:30)
[2023-05-11] MEDS ORDERED: FERR1TAB8 PO (13:26)
[2023-05-11] MEDS ORDERED: LITH1TAB PO (13:26)
[2023-05-11] MEDS ORDERED: PALI1TAB2 PO (13:30)
[2023-05-11] MEDS ORDERED: TRAZ-252 PO (13:30)
[2023-05-11] MEDS ORDERED: SERT50TA29 PO (13:30)
[2023-05-11 18:56] VITALS: BP 131/89; TEMP 97.6
[2023-05-11] MEDS: LITHIUM CARBONATE 300 MG **CR** TAB PO SCH (20:16)
[2023-05-11] MEDS: PALIPERIDONE 3MG ER TAB (INVEGA) PO SCH (20:16)
[2023-05-11] MEDS: traZODone 50 MG TAB PO PRN (20:16)
[2023-05-11] MEDS ORDERED: DOXYCYCLINE HYCLATE 100MG TABLET PO SCH (21:00)
[2023-05-12 06:31] VITALS: BP 140/67; TEMP 97.2; O2SAT 100
[2023-05-12] MEDS: SERTRALINE HCL 50 MG TAB PO SCH (09:49)
[2023-05-12] MEDS: FERROUS SULFATE 325MG TAB PO SCH (09:49)
== END 2023-05-12 10:44 | disposition home or self-care (01) | DRG 776 ==
LOC: M ED 06:13 → M ED INP 18:57 → M PSY 21:19
PROVIDERS: ADMIT Psychiatry & Neurology Psychiatry; ATTEND Student in an Organized Health Care Education/Training Program
DX: F15.951 Other stimulant use, unspecified with stimulant-induced psychotic disorder with hallucinations (principal); F43.9 Reaction to severe stress, unspecified; R45.851 Suicidal ideations; F25.0 Schizoaffective disorder, bipolar type; F12.10 Cannabis abuse, uncomplicated; F32.A Depression, unspecified; D50.9 Iron deficiency anemia, unspecified; A74.9 Chlamydial infection, unspecified; G40.909 Epilepsy, unspecified, not intractable, without status epilepticus; Z20.822 Contact with and (suspected) exposure to COVID-19; Z79.899 Other long term (current) drug therapy

== ENCOUNTER 2023-06-19 12:04 | Emergency (ER) | payer MEDICAID ==
[~2023-06-19] VITALS: Ht 167.6 cm; Wt 99.5 kg
[~2023-06-19 12:04] MED LIST changes: +MED REC COMMENT; +SERT50TA29 PO
[2023-06-19 12:15] VITALS: BP 139/64; TEMP 98.2; O2SAT 96
== END 2023-06-19 15:38 | disposition left against medical advice (07) ==
LOC: M ED 12:04
DX: Z53.21 Procedure and treatment not carried out due to patient leaving prior to being seen by health care provider (principal)

== ENCOUNTER 2025-10-21 19:10 | Observation (INO) | payer MEDICAID, OTHER ==
[~2025-10-21] VITALS: Ht 167.6 cm; Wt 83.2 kg
[~2025-10-21 19:10] MED LIST changes: -OLAN15TA13 PO; +OLAN15TA69 PO; -OLAN2.5T25; -OLAN2.5T25 PO; +OLAN2.5T53; +OLAN2.5T53 PO; -OLAN20TA14 PO; +OLAN20TA53 PO
[2025-10-21 20:17] LABS: BASO # 0.0 10^3/uL (0.0-0.2); BASO % 0.7 % (0.0-1.0); EOS # 0.2 10^3/uL (0.0-0.5); EOS % 4.3 % (0.0-3.0); LYMPH # 1.8 10^3/uL (1.5-5.0); LYMPH % 31.4 % (24.0-44.0); MONO # 0.5 10^3/uL (0.0-0.8); MONO % 8.8 % (2.0-8.0); NEUTROPHILS # 3.1 10^3/uL (1.5-8.5); NEUTROPHILS % 54.6 % (36.0-66.0)
[2025-10-21 20:38] LABS: ETHYL ALCOHOL (ETHANOL) < 0.003 % (0.000-0.010)
[2025-10-21 20:39] LABS: SALICYLATE LEVEL < 3.0 MG/DL (<30)
[2025-10-21 20:43] LABS: ALT/SGPT 480 U/L (7.0-40); AST/SGOT 357 U/L (<34); CALCIUM LEVEL 8.7 MG/DL (8.5-10.1); CARBON DIOXIDE LEVEL 27 MMOL/L (20-31); CHLORIDE LEVEL 105 MMOL/L (98-107); CPK CREATINE PHOSPHOKINASE 1125 U/L (34-145); CREATININE FOR GFR 0.52 MG/DL (0.55-1.30); GLOMERULAR FILTRATION RATE > 90.0 (>60); POTASSIUM SERUM 5.1 MMOL/L (3.5-5.1); SODIUM LEVEL 142 MMOL/L (136-145)
[2025-10-22 00:01] LABS: BARBITURATES URINE NEGATIVE (NEGATIVE); COCAINE METABOLITE URINE NEGATIVE (NEGATIVE); METHADONE URINE NEGATIVE (NEGATIVE); OPIATES URINE NEGATIVE (NEGATIVE); PHENCYCLIDINE URINE NEGATIVE (NEGATIVE)
[2025-10-22 00:02] LABS: AMPHETAMINES LEVEL URINE POSITIVE (NEGATIVE); BENZODIAZEPINES URINE POSITIVE (NEGATIVE); CANNABINOIDS URINE POSITIVE (NEGATIVE)
[2025-10-22] MEDS: LR 1,000 ML IV ONE ×2 (02:52→03:55)
[2025-10-22] MEDS ORDERED: ACETAMINOPHEN 325 MG TAB PO PRN (04:10)
[2025-10-22] MEDS ORDERED: MAALOX 30 ML SUSP *UDC PO PRN (04:10)
[2025-10-22] MEDS ORDERED: MOM 30 ML SUSPENSION UDC PO PRN (04:10)
[2025-10-22 04:20] LABS: KETONE, URINE AUTO RFX TRACE mg/dL (NEGATIVE); LEUKOCYTE ESTERASE UR AUTO RFX NEGATIVE (NEGATIVE); NITRITE, URINE AUTO RFX NEGATIVE (NEGATIVE); RBC, URINE AUTO RFX 0 /HPF (0-3); SQUAM EPITHELIAL CELL UR AURFX 0 /HPF (0-6); WBC, URINE AUTO RFX 0 /HPF (0-3)
[2025-10-22 07:58] LABS: PLATELET COUNT, AUTOMATED 247 10^3/uL (150-450)
[2025-10-22] MEDS ORDERED: HOME MED LIST COMPLETE! XX SCH (08:05)
[2025-10-22 09:00] LABS: THYROXINE (T4) 9.5 UG/DL (4.5-10.9)
[2025-10-22 09:13] LABS: ALT/SGPT 375 U/L (7.0-40); AST/SGOT 243 U/L (<34); CALCIUM LEVEL 8.1 MG/DL (8.5-10.1); CARBON DIOXIDE LEVEL 29 MMOL/L (20-31); CHLORIDE LEVEL 106 MMOL/L (98-107); CREATININE FOR GFR 0.58 MG/DL (0.55-1.30); GLOMERULAR FILTRATION RATE > 90.0 (>60); POTASSIUM SERUM 4.0 MMOL/L (3.5-5.1); SODIUM LEVEL 142 MMOL/L (136-145); T UPTAKE 31.2 % (22.5-37.0)
[2025-10-22] MEDS: THIAMINE 100 MG TAB PO SCH (09:25)
[2025-10-22] MEDS: DOCUSATE SODIUM 100 MG CAPSULE PO SCH (09:25)
[2025-10-22] MEDS: MULTIVITAMINS/MINERALS THERAP 1 TAB PO SCH (09:26)
[2025-10-22] MEDS: FOLIC ACID 1 MG TAB PO SCH (09:26)
[2025-10-22] MEDS: RIVAROXABAN 10MG TAB PO SCH (09:26)
[2025-10-22 11:50] LABS: HEPATITIS C VIRUS ABY INDEX 4.38 INDEX (<0.8)
[2025-10-22] MEDS: LR 1,000 ML IV SCH (14:15)
[2025-10-22 21:01] VITALS: BP 128/58; TEMP 98.4; O2SAT 100
[2025-10-23 02:10] VITALS: O2SAT 95
[2025-10-23 04:00] VITALS: BP 123/66; TEMP 98.7; O2SAT 95
[2025-10-23 09:59] LABS: CPK CREATINE PHOSPHOKINASE 462 U/L (34-145)
[2025-10-23 10:03] LABS: ALT/SGPT 397 U/L (7.0-40); AST/SGOT 241 U/L (<34); CALCIUM LEVEL 8.5 MG/DL (8.5-10.1); CARBON DIOXIDE LEVEL 26 MMOL/L (20-31); CHLORIDE LEVEL 103 MMOL/L (98-107); CREATININE FOR GFR 0.49 MG/DL (0.55-1.30); GLOMERULAR FILTRATION RATE > 90.0 (>60); MAGNESIUM LEVEL 1.8 MG/DL (1.8-2.4); POTASSIUM SERUM 4.1 MMOL/L (3.5-5.1); SODIUM LEVEL 138 MMOL/L (136-145)
[2025-10-23 12:00] VITALS: BP 150/64; TEMP 98.3; O2SAT 98
[2025-10-23] MEDS ORDERED: FOLI1TAB11 PO (17:37)
[2025-10-23] MEDS ORDERED: THERTAB19 PO (17:37)
[2025-10-23] MEDS ORDERED: THIA100TA PO (17:37)
[2025-10-23 20:26] VITALS: BP 108/70; TEMP 98.5; O2SAT 100
[2025-10-24 12:30] LABS: HCV RNA log10 6.3 Log IU/mL (NOT DETECTED)
== END 2025-10-23 22:00 | disposition other institution (70) ==
LOC: M ED 19:10 → M ED INP 19:11 → M MSPAV 10-22 20:53
PROVIDERS: ADMIT Student in an Organized Health Care Education/Training Program; ATTEND Internal Medicine
DX: M62.82 Rhabdomyolysis (principal); T42.4X2A Poisoning by benzodiazepines, intentional self-harm, initial encounter; T14.91XA Suicide attempt, initial encounter; Z87.891 Personal history of nicotine dependence; Z79.899 Other long term (current) drug therapy; R74.01 Elevation of levels of liver transaminase levels; Z79.01 Long term (current) use of anticoagulants; F19.90 Other psychoactive substance use, unspecified, uncomplicated; F33.1 Major depressive disorder, recurrent, moderate; F41.1 Generalized anxiety disorder; F41.0 Panic disorder [episodic paroxysmal anxiety]; F43.10 Post-traumatic stress disorder, unspecified; Z63.8 Other specified problems related to primary support group; Z59.00 Homelessness unspecified

== ENCOUNTER 2025-10-23 20:17 | Inpatient (IN) | payer OTHER ==
[~2025-10-23] VITALS: Ht 170.2 cm; Wt 82.8 kg
[~2025-10-23 20:17] MED LIST changes: +FOLI1TAB11 PO; +THERTAB19 PO; +THIA100TA PO
[2025-10-23] MEDS ORDERED: MAALOX 30 ML SUSP *UDC PO PRN (21:30)
[2025-10-23] MEDS ORDERED: MOM 30 ML SUSPENSION UDC PO PRN (21:30)
[2025-10-23 23:54] VITALS: BP 137/80; TEMP 97.5; O2SAT 99
[2025-10-24] MEDS: NICOTINE 21 MG/24 HR 1 EA TRANSDERMAL TD SCH (09:43)
[2025-10-24] MEDS: SERTRALINE HCL 50 MG TAB PO SCH (11:02)
[2025-10-24 16:53] VITALS: BP 121/61; TEMP 98.6; O2SAT 99
[2025-10-24] MEDS: traZODone 50 MG TAB PO PRN (20:48)
[2025-10-25 06:30] VITALS: BP 102/60; TEMP 98; O2SAT 97
[2025-10-25 14:38] VITALS: BP 133/66; TEMP 98.1; O2SAT 98
[2025-10-25] MEDS: ACETAMINOPHEN 325 MG TAB PO PRN (20:04)
[2025-10-26 14:49] VITALS: BP 134/61; TEMP 98.1; O2SAT 100
[2025-10-27 06:40] VITALS: BP 143/71; TEMP 98; O2SAT 100
[2025-10-27 16:11] VITALS: BP 139/84; TEMP 97.2; O2SAT 98
[2025-10-28 06:38] VITALS: BP 101/58; TEMP 97.9; O2SAT 100
[2025-10-28] MEDS ORDERED: SERT50TA29 PO (08:17)
[2025-10-28] MEDS ORDERED: HYDR-3363 PO (08:17)
[2025-10-28] MEDS ORDERED: ABIL1TAB11 PO (08:17)
== END 2025-10-28 11:05 | disposition home or self-care (01) | DRG 751 ==
LOC: M PSY 22:42
PROVIDERS: ADMIT Internal Medicine; ATTEND Internal Medicine
DX: F33.1 Major depressive disorder, recurrent, moderate (principal); M62.82 Rhabdomyolysis; R45.851 Suicidal ideations; Z91.148 Patient's other noncompliance with medication regimen for other reason; F41.1 Generalized anxiety disorder; F41.0 Panic disorder [episodic paroxysmal anxiety]; F43.10 Post-traumatic stress disorder, unspecified; F11.10 Opioid abuse, uncomplicated; F15.10 Other stimulant abuse, uncomplicated; F12.10 Cannabis abuse, uncomplicated; Z59.00 Homelessness unspecified; B18.2 Chronic viral hepatitis C; Z79.899 Other long term (current) drug therapy

== ENCOUNTER 2025-10-28 23:40 | Emergency (ER) | payer OTHER ==
[~2025-10-28 23:40] MED LIST changes: +ABIL1TAB11 PO; +HYDR-3363 PO
[2025-10-29 00:37] LABS: PLATELET COUNT, AUTOMATED 288 10^3/uL (150-450)
[2025-10-29 00:55] LABS: BARBITURATES URINE NEGATIVE (NEGATIVE); BENZODIAZEPINES URINE NEGATIVE (NEGATIVE); COCAINE METABOLITE URINE NEGATIVE (NEGATIVE); METHADONE URINE NEGATIVE (NEGATIVE); OPIATES URINE NEGATIVE (NEGATIVE); PHENCYCLIDINE URINE NEGATIVE (NEGATIVE)
[2025-10-29 00:57] LABS: ETHYL ALCOHOL (ETHANOL) 0.240 % (0.000-0.010)
[2025-10-29 00:59] LABS: ALT/SGPT 617 U/L (7.0-40); AST/SGOT 433 U/L (<34); CALCIUM LEVEL 8.4 MG/DL (8.5-10.1); CARBON DIOXIDE LEVEL 23 MMOL/L (20-31); CHLORIDE LEVEL 103 MMOL/L (98-107); CREATININE FOR GFR 0.56 MG/DL (0.55-1.30); GLOMERULAR FILTRATION RATE > 90.0 (>60); POTASSIUM SERUM 4.3 MMOL/L (3.5-5.1); SALICYLATE LEVEL < 3.0 MG/DL (<30); SODIUM LEVEL 138 MMOL/L (136-145)
[2025-10-29 01:04] LABS: AMPHETAMINES LEVEL URINE POSITIVE (NEGATIVE); CANNABINOIDS URINE POSITIVE (NEGATIVE)
[2025-10-29 06:17] VITALS: BP 127/71; TEMP 97.7; O2SAT 100
== END 2025-10-29 06:23 | disposition home or self-care (01) ==
LOC: M ED 23:40
DX: F10.10 Alcohol abuse, uncomplicated (principal); F19.10 Other psychoactive substance abuse, uncomplicated; F20.9 Schizophrenia, unspecified; G43.909 Migraine, unspecified, not intractable, without status migrainosus; F41.9 Anxiety disorder, unspecified; Z79.899 Other long term (current) drug therapy

== ENCOUNTER 2025-10-30 20:50 | Emergency (ER) | payer OTHER ==
[2025-10-30 21:56] LABS: PLATELET COUNT, AUTOMATED 273 10^3/uL (150-450)
[2025-10-30 22:32] LABS: ETHYL ALCOHOL (ETHANOL) < 0.003 % (0.000-0.010); HCG, SERUM QUALITATIVE NEGATIVE (NEGATIVE)
[2025-10-30 22:33] LABS: SALICYLATE LEVEL < 3.0 MG/DL (<30)
[2025-10-30 22:36] LABS: ALT/SGPT 566 U/L (7.0-40); AST/SGOT 320 U/L (<34); CALCIUM LEVEL 8.6 MG/DL (8.5-10.1); CARBON DIOXIDE LEVEL 27 MMOL/L (20-31); CHLORIDE LEVEL 104 MMOL/L (98-107); CREATININE FOR GFR 0.53 MG/DL (0.55-1.30); GLOMERULAR FILTRATION RATE > 90.0 (>60); POTASSIUM SERUM 4.2 MMOL/L (3.5-5.1); SODIUM LEVEL 139 MMOL/L (136-145)
[2025-10-31 05:36] LABS: BARBITURATES URINE NEGATIVE (NEGATIVE)
[2025-10-31 05:37] LABS: BENZODIAZEPINES URINE NEGATIVE (NEGATIVE); METHADONE URINE NEGATIVE (NEGATIVE); OPIATES URINE NEGATIVE (NEGATIVE); PHENCYCLIDINE URINE NEGATIVE (NEGATIVE)
[2025-10-31 05:38] LABS: AMPHETAMINES LEVEL URINE POSITIVE (NEGATIVE); CANNABINOIDS URINE POSITIVE (NEGATIVE); COCAINE METABOLITE URINE POSITIVE (NEGATIVE)
[2025-10-31 08:25] VITALS: BP 110/59; TEMP 98.5; O2SAT 100
== END 2025-10-31 09:06 | disposition home or self-care (01) ==
LOC: M ED 20:50
DX: F32.A Depression, unspecified (principal); Z91.51 Personal history of suicidal behavior; F20.9 Schizophrenia, unspecified; F19.10 Other psychoactive substance abuse, uncomplicated; F17.200 Nicotine dependence, unspecified, uncomplicated; Z79.899 Other long term (current) drug therapy